=== PATIENT | female | born 1955 | race Caucasian/White ===

== ENCOUNTER 2017-05-15 11:55 | Emergency (ER) | payer MEDICARE ==
--- OUTSIDE RECORDS SUMMARY | 2017-05-15 12:04 | XMS REPORT ---
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 Active Social History Type Date Description Comments ETOH Use Denies alcohol use Smoking Patient is a former smoker Allergies, Adverse Reactions, Alerts Date Description Reaction Status Severity Comments 01/09/2017 Amoxicillin active Medications Medication Date Status Form Strength Qnty SIG Indications Ordering Provider Lamotrigine Active Tablets 100mg 180tabs 1 po bid G40.209 Rodney Hansen M.D. Alendronate Active Tablets 70mg 12tabs 1 tablet Unknown Sodium 000 once weekly. take on empty stomach with 8 oz water. do not eat or lie down for 30 min after taking Vitamin D Active Capsules 1000Unit 1 by mouth Unknown (Cholecalcifer 000 every day ol) Calcium 1200 0 Active Tabs 1 by mouth Unknown 000 every day Lamotrigine Hx Tablets 25mg 120tabs 1 by mouth G40.209 Rodney Parra - every Jade, night at M.D. 017 bedtime for 1 week then 2 every night at bedtime for 1 week then 3 every night at bedtime for 1 wee Vital Signs Date Vital Result Comment 05/09/2017 Height 66.5 inches 5'6.50" Weight 125.00 lb Heart Rate 68 /min BP Systolic Sitting 122 mmHg BP Diastolic Sitting 82 mmHg Respiratory Rate 17 /min Pain Level 5 can be a 10 some days BMI (Body Mass Index) 19.9 kg/m2 01/24/2017 Height 66.5 inches 5'6.50" Weight 120.00 lb Heart Rate 70 /min BP Systolic Sitting 124 mmHg BP Diastolic Sitting 70 mmHg Respiratory Rate 15 /min Pain Level 0 BMI (Body Mass Index) 19.1 kg/m2 01/09/2017 Height 66.5 inches 5'6.50" Weight 126.50 lb Heart Rate 66 /min BP Systolic Sitting 126 mmHg BP Diastolic Sitting 78 mmHg Respiratory Rate 17 /min BMI (Body Mass Index) 20.1 kg/m2 Results Description No Information Procedures Date CPT Code Description Status 01/11/2017 71934 EEG Recording Awake & Drowsy Completed Encounters Type Date Location Provider CPT E/M Dx Office Visit 01/24/2017 [facility] Rodney Hansen, 37055 G40.209 1:30p [facility] Z85.841 Office Visit 01/09/2017 9:00a [facility] Rodney Hansen, 37890 G40.209 [facility] Yen Z85.841 Plan of Care Future Appointment(s):04/24/2018 3:15 pm - Rodney Hansen M.D. at [facility]05/09/2017 - Rodney Hansen M.D.G40.209 Local- rel symptc epi w cmplx prt seiz,not ntrct,w/o stat epiFollow up:1 YEARZ85.841 Personal history of malignant neoplasm of brain
[2017-05-15 12:25] VITALS: BP 153/83
--- NOTE | 2017-05-15 12:32 | UC ---
Back Pain HPI - HPI Summary HPI Summary: Pt presents s/p fall 1.5weeks ago. She tells me that she was walking up her stairs at home and tripped over a box on the stairs. Fell backwards and landed on her buttocks. No LOC and did not hit her head. Had immediate pain, but was able to get up and ambulate. Eventually pain improved, but is still persistent at this time. Denies fever, chills, SOB, chest pain, abdominal pain, N/V/D/C, numbness/tingling, radiation of pain, dysuria, or loss of bowel/bladder control. She is ambulating with cane assistance. Has been taking ibuprofen for pain with good relief. - History of Current Complaint Chief Complaint: UCLowerExtremity Stated Complaint: SP FALL- LOWER BACK PAIN Onset/Duration: Gradual Onset Timing: Constant Severity Initially: Moderate Severity Currently: Moderate Pain Intensity: 8 Pain Scale Used: 0-10 Numeric Character: Aching, Spasmodic, Stiffness Aggravating Factor(s): Movement, Lifting, Bending, Walking Alleviating Factor(s): Rest, Position - Allergies/Home Medications Allergies/Adverse Reactions: Allergies Allergy/AdvReac Type Severity Reaction Status Date / Time Amoxicillin Allergy Unknown Verified 05/15/17 12:12 Reaction Details Home Medications: Home Medications Alendronate TAB (NF) [Fosamax TAB (NF)] 1 tab WEEKLY 05/15/17 [History Confirmed 05/15/17] PMH/Surg Hx/FS Hx/Imm Hx - Additional Past Medical History Additional PMH: Osteoporosis - Surgical History Surgical History: Yes Surgery Procedure, Year, and Place: Brain cx surgery - Social History Lives: Alone Alcohol Use: None Substance Use Type: None Smoking Status (MU): Never Smoked Tobacco - Immunization History Most Recent Influenza Vaccination: no Review of Systems Constitutional: Negative Skin: Negative Respiratory: Negative Cardiovascular: Negative Gastrointestinal: Negative Genitourinary: Negative Musculoskeletal: Other: - LBP Neurological: Negative Psychological: Negative All Other Systems Reviewed And Are Negative: Yes Physical Exam Triage Information Reviewed: Yes Appearance: Well-Appearing, No Pain Distress, Well-Nourished Vital Signs: Initial Vital Signs Temp 97 F 05/15/17 12:15 Pulse 62 05/15/17 12:15 Resp 16 05/15/17 12:15 BP 153/83 05/15/17 12:15 Pulse Ox 100 05/15/17 12:15 Vital Signs Reviewed: Yes Neck: Positive: Supple, No Lymphadenopathy, Other: - FROM. NTTP Respiratory: Positive: Chest non-tender, Lungs clear, Normal breath sounds, No respiratory distress, No accessory muscle use Cardiovascular: Positive: RRR, No Murmur, Pulses Normal Abdomen Description: Positive: Nontender, No Organomegaly, Soft. Negative: CVA Tenderness (R), CVA Tenderness (L), Distended, Guarding Bowel Sounds: Positive: Present Musculoskeletal: Positive: Strength Intact - B/L LEs including dorsiflexion and plantar flexion., ROM Intact - B/L LEs, No Edema, Other: - TTP over inferior sacrum and paraspinal muscles of lumbar spine. No obvious bony deformities. Positive SLR on right. Negative BULL. Neurological: Positive: Alert, Other: - L3-S1 sensations intact B/L Psychological: Positive: Age Appropriate Behavior Skin: Negative: rashes Back Pain Course/Dx - Course Course Of Treatment: Low back contusion s/p fall. Pt reports that she has been improving a little bit everyday. I reassured her that this will take time to improve and that she should follow up with her PCP if symptoms worsen or change. Continue taking ibuprofen as needed every 6 hours throughout the day. - Differential Dx/Diagnosis Differential Diagnosis/HQI/PQRI: Cauda Equina Syndrome, Fracture, Herniated Disc , Osteoporosis, Strain, Sprain Provider Diagnoses: Low back contusion s/p fall Discharge - Discharge Plan Condition: Stable Disposition: HOME Patient Education Materials: Back Pain (ED) Referrals: Fox Fulton MD [Primary Care Provider] - Additional Instructions: If you develop a fever, SOB, chest pain, new or worsening symptoms - please call your PCP or go to the ED. Your blood pressure was high at todays visit. Please see your primary provider within 4 weeks for recheck and re-evaluation. 1) Rest and heat your lower back. 2) Continue taking OTC tylenol or ibuprofen for pain. 3) If symptoms persist or worsen - please call your PCP for a follow up appointment or go to the ED.
--- NOTE | 2017-05-15 13:20 | RAD ---
INDICATION: Trauma, back pain. COMPARISON: There are no prior studies available for comparison. TECHNIQUE: 5 views of the lumbar spine were obtained including lateral, oblique, AP and a coned-down lateral view of the lumbar sacral junction. FINDINGS: The vertebra are in normal alignment. No fracture is seen. Disc spaces appear maintained. IMPRESSION: NO EVIDENCE FOR FRACTURE, IF THE PATIENT'S SYMPTOMS PERSIST RECOMMEND FOLLOW-UP IMAGING.
== END 2017-05-15 13:33 | disposition home or self-care (01) ==
LOC: UCCORT 11:55
DX: S30.0XXA Contusion of lower back and pelvis, initial encounter (principal); W10.8XXA Fall (on) (from) other stairs and steps, initial encounter; Y93.01 Activity, walking, marching and hiking; Y92.009 Unspecified place in unspecified non-institutional (private) residence as the place of occurrence of the external cause; Y99.9 Unspecified external cause status
CPT/HCPCS: 72110; 99211; G0463